=== PATIENT | female | born 1945 | race Asian ===

== ENCOUNTER 2016-10-31 12:54 | Emergency (ER) | payer MEDICARE, OTHER ==
[2016-10-31] MEDS ORDERED: NS 0.9% 1000 ML* 1,000 ML IV ONE (15:47)
[2016-10-31] MEDS ORDERED: Ondansetron INJ* 2 MG/ML VIAL IV ONE (15:47)
[2016-10-31] MEDS ORDERED: Meclizine TAB* 12.5 MG PO ONE (15:48)
[2016-10-31 16:15] LABS: Troponin I 0.02 ng/mL (<0.04)
[2016-10-31 16:16] LABS: Hematocrit 35 % (35-47); Hemoglobin 11.3 g/dl (12.0-16.0); Mean Corpuscular HGB Conc 32 g/dl (31-36); Mean Corpuscular Hemoglobin 24 pg (27-31); Mean Corpuscular Volume 75 fL (80-97); Mean Platelet Volume 9 um3 (7.4-10.4); Red Blood Count 4.71 10^6/ul (4.0-5.4); Red Cell Distribution Width 15 % (10.5-15); White Blood Count 11.9 10^3/ul (3.5-10.8)
[2016-10-31 16:18] LABS: Add Diff/Slide Review? Slide Review Added; Comments Flag Yes
[2016-10-31 16:21] LABS: Albumin 3.8 g/dL (3.2-5.2); BUN/Creatinine Ratio 16.7 (8-20); C Reactive Protein 3.12 mg/L (< 5.00); Calcium 9.4 mg/dL (8.6-10.3); EGFR African American 73.7 (>60); EGFR Non-African American 57.3 (>60); Globulin 3.7 g/dL (2-4); Total Bilirubin 0.5 mg/dL (0.2-1.0); Total Protein 7.5 g/dL (6.4-8.9)
[2016-10-31 16:28] LABS: TSH (Thyroid Stimulating Horm) 0.4 mcIU/mL (0.34-5.60)
--- NOTE | 2016-10-31 16:32 | RAD ---
Indication: Dizziness. CT of the brain was performed without IV contrast. Comparison is made with previous exam dated December 15, 2013. Ventricular structures are midline. No midline shift is noted. Central and cortical atrophy is noted. Periventricular lucency consistent with chronic ischemic White matter change is noted. Chronic infarct in the right frontal lobe is unchanged from previous exam of December 15, 2013. Bony calvaria including mastoid air cells and paranasal sinuses are unremarkable. 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 NO INTRACRANIAL MASS OR HEMORRHAGE IS NOTED.
[2016-10-31 16:35] LABS: Hypochromasia 1+; Microcytosis 1+
[2016-10-31 16:36] LABS: Magnesium 1.8 mg/dL (1.9-2.7); Potassium 4.8 mmol/L (3.5-5.0)
--- NOTE | 2016-10-31 16:51 | RAD ---
Indication: Dizziness. Single AP view of the chest demonstrates no mediastinal shift. Heart is of normal size and configuration. Lung justin are clear. Comparison is made with previous exam dated July 12, 2003 which is essentially unchanged. IMPRESSION: No active cardiopulmonary disease is noted.
[2016-10-31] MEDS ORDERED: Magnesium Oxide TAB* 400 MG PO ONE (17:02)
--- NOTE | 2016-10-31 17:49 | ED ---
Alex Muller Adam, scribed for Jake Watson MD on 10/31/16 at 1600 . Dizziness - HPI Summary HPI Summary: Pt is a 70 year old female presenting with dizziness that set on suddenly at 09: 00 this morning. Closing her eyes alleviates the dizziness. She also c/o nausea and vomiting. She denies CP, palpitations, and MONTESINOS. She denies any URI symptoms or Hx of URI. PMHx of DM, thyroid disease, and kidney stones. No tobacco/ alcohol use. FMHx of DM. - History Of Current Complaint Chief Complaint: EDDizziness Stated Complaint: DIZZY / NAUSEA Time Seen by Provider: 10/31/16 15:38 Hx Obtained From: Patient Onset/Duration: Suddenly Timing: Constant Severity Initially: Moderate Severity Currently: Moderate Character: Dizzy Aggravating Factor(s): Other - Opening eyes Alleviating Factor(s): Closing Eyes Associated Signs And Symptoms: Positive: Nausea, Vomiting. Negative: Chest Pain , Palpitations - Allergies/Home Medications Allergies/Adverse Reactions: Allergies Allergy/AdvReac Type Severity Reaction Status Date / Time No Known Allergies Allergy Verified 07/18/16 21:29 PMH/Surg Hx/FS Hx/Imm Hx Endocrine/Hematology History: Reports: Hx Diabetes, Hx Thyroid Disease - hypo - Surgical History Surgery Procedure, Year, and Place: Lithotripsy right kidney Infectious Disease History: No Infectious Disease History: Denies: Hx Clostridium Difficile, Hx Hepatitis, Hx Human Immunodeficiency Virus (HIV), Hx of Known/Suspected MRSA, Hx Shingles, Hx Tuberculosis, Hx Known/ Suspected VRE, Hx Known/Suspected VRSA, History Other Infectious Disease, Traveled Outside the [place] in Last 30 Days - Family History Known Family History: Positive: Diabetes Negative: Cardiac Disease, Hypertension - Social History Occupation: Retired Lives: With Family - Alcohol Use: None Hx Substance Use: No Substance Use Type: Reports: None Hx Tobacco Use: No Smoking Status (MU): Never Smoked Tobacco Have You Smoked in the Last Year: No Review of Systems Negative: Palpitations, Chest Pain Positive: Vomiting, Nausea Neurological: Other - Dizziness Negative: Headache All Other Systems Reviewed And Are Negative: Yes Physical Exam - Summary Physical Exam Summary: VITAL SIGNS: Reviewed. GENERAL: Patient is an overweight female who is lying comfortable in the stretcher. Patient is not in any acute respiratory distress. HEAD AND FACE: No signs of trauma. No ecchymosis, hematomas or skull depressions. No sinus tenderness. EYES: PERRLA, EOMI x 2, No injected conjunctiva, no nystagmus. No photophobia. EARS: Hearing grossly intact. Ear canals and tympanic membranes are within normal limits. MOUTH: Oropharynx within normal limits. NECK: Supple, trachea is midline, no adenopathy, no JVD, no carotid bruit, no c- spine tenderness, neck with full ROM. No meningeal signs, no Kernig's or brudzinskis signs. CHEST: Symmetric, no tenderness at palpation LUNGS: Clear to auscultation bilaterally. No wheezing or crackles. CVS: Regular rate and rhythm, S1 and S2 present, no murmurs or gallops appreciated. ABDOMEN: Soft, non-tender. No signs of distention. No rebound no guarding, and no masses palpated. Bowel sounds are normal. EXTREMITIES: FROM in all major joints, no edema, no cyanosis or clubbing. NEURO: Alert and oriented x 3. No acute neurological deficits. Speech is normal and follows commands. SKIN: Dry and warm Triage Information Reviewed: Yes Vital Signs On Initial Exam: Initial Vitals Temp Pulse Resp BP Pulse Ox 97.3 F 71 18 177/85 99 10/31/16 13:04 10/31/16 13:04 10/31/16 13:04 10/31/16 13:04 10/31/16 13:04 Vital Signs Reviewed: Yes Diagnostics - Vital Signs Vital Signs Temp Pulse Resp BP Pulse Ox 10/31/16 13:04 97.3 F 71 18 177/85 99 - Laboratory Lab Results: Lab Results 10/31/16 10/31/16 10/31/16 Range/Units 15:05 15:05 15:05 WBC 11.9 H (3.5-10.8) 10^3/ul RBC 4.71 (4.0-5.4) 10^6/ul Hgb 11.3 L (12.0-16.0) g/dl Hct 35 (35-47) % MCV 75 L (80-97) fL MCH 24 L (27-31) pg MCHC 32 (31-36) g/dl RDW 15 (10.5-15) % Plt Count 199 (150-450) 10^3/ul MPV 9 (7.4-10.4) um3 Neut % (Auto) 79.0 (38-83) % Lymph % (Auto) 14.3 L (25-47) % Roane % (Auto) 5.3 (1-9) % Eos % (Auto) 1.0 (0-6) % Baso % (Auto) 0.4 (0-2) % Absolute Neuts (auto) 9.4 H (1.5-7.7) 10^3/ul Absolute Lymphs (auto) 1.7 (1.0-4.8) 10^3/ul Absolute Monos (auto) 0.6 (0-0.8) 10^3/ul Absolute Eos (auto) 0.1 (0-0.6) 10^3/ul Absolute Basos (auto) 0.1 (0-0.2) 10^3/ul Absolute Nucleated RBC 0 10^3/ul Nucleated RBC % 0 Normal RBC Morphology Not Reportable Hypochromasia 1+ Microcytosis 1+ Sodium 134 (133-145) mmol/L Potassium 4.8 (3.5-5.0) mmol/L Chloride 102 (101-111) mmol/L Carbon Dioxide 28 (22-32) mmol/L Anion Gap 4 (2-11) mmol/L BUN 16 (6-24) mg/dL Creatinine 0.96 H (0.51-0.95) mg/dL Est GFR ( Amer) 73.7 (>60) Est GFR (Non-Af Amer) 57.3 (>60) BUN/Creatinine Ratio 16.7 (8-20) Glucose 219 H (70-100) mg/dL Calcium 9.4 (8.6-10.3) mg/dL Magnesium 1.8 L (1.9-2.7) mg/dL Total Bilirubin 0.50 (0.2-1.0) mg/dL AST 35 (13-39) U/L ALT 32 (7-52) U/L Alkaline Phosphatase 42 (34-104) U/L Troponin I 0.02 (<0.04) ng/mL C-Reactive Protein 3.12 (< 5.00) mg/L B-Natriuretic Peptide 63 ( - 100) pg/mL Total Protein 7.5 (6.4-8.9) g/dL Albumin 3.8 (3.2-5.2) g/dL Globulin 3.7 (2-4) g/dL Albumin/Globulin Ratio 1.0 (1-3) TSH 0.40 (0.34-5.60) mcIU/mL Result Diagrams: 10/31/16 15:05 10/31/16 15:05 Lab Statement: Any lab studies that have been ordered have been reviewed, and results considered in the medical decision making process. 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 NO INTRACRANIAL MASS OR HEMORRHAGE IS NOTED. - Additional Comments Diagnostic Additional Comments: Troponin I - 0.02 Dizzy Course/Dx - Course Assessment/Plan: Pt is a 70 year old female presenting with dizziness that set on suddenly at 09:00 this morning. Closing her eyes alleviates the dizziness. She also c/o nausea and vomiting. She denies CP, palpitations, and MONTESINOS. She denies any URI symptoms or Hx of URI. PMHx of DM, thyroid disease, and kidney stones. In the ED course she was given IV fluids. Zofran for nausea and Meclizine for Vertigo. Head CT impression : age appropriate atrophy w/ chronic ischemic changes. Old lacunar infarct. No intracranial mass or hemorrhage noted. CXR shows no acute pathology. Labs WNL except for slight increase in the WBCs, and hyperglycemia of 219 and magnesium of 1.8 for which she was given magnesium tablets. I discussed all the findings and test results with the patient. Patient was instructed to return to the emergency room immediately if any of the symptoms return or worsens. Patient understands and agrees. Plan of care was discussed with the patient and patient understands and agrees with the plan of care. All questions were answered at patient satisfaction. There were no further complaints or concerns. Patient is alert and oriented x 3. Patient vital signs are stable. Patient is to follow up with primary care physician in the next 2 to 3 days. Patient understands and agrees. - Diagnoses Differential Diagnosis/HQI/PQRI: Anxiety, Meniere's Disease, Medication Reaction , Transient Ischemic Attack, Vasovagal Reaction Provider Diagnoses: Vertigo Discharge - Discharge Plan Condition: Stable Disposition: HOME Prescriptions: Meclizine TAB* [Antivert 12.5 TAB*] 25 mg PO TID PRN #30 tab PRN Reason: Vertigo Ondansetron ODT TAB* [Zofran Odt TAB*] 4 mg PO Q6H PRN #10 tab.odt PRN Reason: Vomiting Patient Education Materials: Vertigo (ED) Referrals: Louis Raymundo MD [Primary Care Provider] - The documentation as recorded by the Alex katz Adam accurately reflects the service I personally performed and the decisions made by Walter bhakta Walter, MD.
[2016-10-31 18:07] VITALS: BP 132/72
== END 2016-10-31 18:05 | disposition home or self-care (01) ==
LOC: ED 12:54
DX: R42 Dizziness and giddiness (principal); R11.2 Nausea with vomiting, unspecified
CPT/HCPCS: 36415; 70450; 71010; 80053; 83735; 83880; 84443; 84484; 85025; 86140; 93005; 96374; 99284; A9270-GY; J2405

== ENCOUNTER 2017-12-05 20:59 | Emergency (ER) | payer MEDICARE, OTHER ==
[2017-12-06] MEDS: LORazepam INJ* 2 MG/ML 1 ML VIAL IV PUSH ONE (00:07)
[2017-12-06] MEDS: Labetalol IV* 5 MG/ML 20 ML VIAL IV PUSH ONE (00:07)
[2017-12-06] MEDS: Meclizine TAB* 12.5 MG PO ONE (00:08)
[2017-12-06 00:16] LABS: ABS Basophils 0 10^3/ul (0-0.2); ABS Eosinophils 0 10^3/ul (0-0.6); ABS Lymphocytes 0.9 10^3/ul (1.0-4.8); ABS Monocytes 0.5 10^3/ul (0-0.8); ABS Neutrophils 9.4 10^3/ul (1.5-7.7); ABS Nucleated RBC 0 10^3/ul; Eosinophil % 0.3 % (0-6); Hematocrit 36 % (35-47); Hemoglobin 11.8 g/dl (12.0-16.0); Mean Corpuscular HGB Conc 33 g/dl (31-36); Mean Corpuscular Hemoglobin 24 pg (27-31); Mean Corpuscular Volume 75 fL (80-97); Mean Platelet Volume 9 um3 (7.4-10.4); Nucleated Red Blood Cells % 0; Platelet Count 185 10^3/ul (150-450); Red Blood Count 4.83 10^6/ul (4.0-5.4); Red Cell Distribution Width 14 % (10.5-15); White Blood Count 10.8 10^3/ul (3.5-10.8)
[2017-12-06 00:24] LABS: INR 0.85 (0.77-1.02)
[2017-12-06 00:31] LABS: EGFR Non-African American 66.6 (>60)
[2017-12-06] MEDS: Iodixanol* (CONTRAST) 320 MG/ML 100 ML SDV IV ONE (03:14)
[2017-12-06 04:27] VITALS: BP 143/56
--- NOTE | 2017-12-06 04:46 | ED ---
Alvin Muller Stephanie, scribed for Zeyad Spear MD on 12/05/17 at 2356 . Dizziness - HPI Summary HPI Summary: The pt is a 71 y/o F presenting to the ED with c/o dizziness that began at 19: 00 today. The dizziness is described as room-spinning dizziness. Symptoms include nausea and vomiting. The pt reports taking 2 Meclizine tablets at 06:00 today. The pt reports feeling better now than she did at the time of onset. - History Of Current Complaint Chief Complaint: EDDizziness Stated Complaint: ABD PAIN/DIZZY Time Seen by Provider: 12/05/17 23:23 Hx Obtained From: Patient, Family/[employer] Access Developer - daughter/translater Onset/Duration: Still Present Timing: Constant Character: Room Spinning, Dizzy Aggravating Factor(s): Other - opening eyes Alleviating Factor(s): Closing Eyes Associated Signs And Symptoms: Positive: Nausea, Vomiting - Allergies/Home Medications Allergies/Adverse Reactions: Allergies Allergy/AdvReac Type Severity Reaction Status Date / Time No Known Allergies Allergy Verified 12/05/17 21:19 PMH/Surg Hx/FS Hx/Imm Hx Endocrine/Hematology History: Reports: Hx Diabetes, Hx Thyroid Disease - hypo - Surgical History Surgery Procedure, Year, and Place: Lithotripsy right kidney Infectious Disease History: No Infectious Disease History: Denies: Hx Clostridium Difficile, Hx Hepatitis, Hx Human Immunodeficiency Virus (HIV), Hx of Known/Suspected MRSA, Hx Shingles, Hx Tuberculosis, Hx Known/ Suspected VRE, Hx Known/Suspected VRSA, History Other Infectious Disease, Traveled Outside the [place] in Last 30 Days - Family History Known Family History: Positive: Diabetes Negative: Cardiac Disease, Hypertension - Social History Occupation: Retired Lives: With Family Alcohol Use: None Hx Substance Use: No Substance Use Type: Reports: None Hx Tobacco Use: No Smoking Status (MU): Never Smoked Tobacco Have You Smoked in the Last Year: No Review of Systems Positive: Vomiting, Nausea Neurological: Other - dizziness All Other Systems Reviewed And Are Negative: Yes Physical Exam - Summary Physical Exam Summary: VITAL SIGNS: Reviewed. GENERAL: Patient is a well-developed and nourished FEMALE who is lying comfortable in the stretcher. Patient is not in any acute respiratory distress. HEAD AND FACE: No signs of trauma. No ecchymosis, hematomas or skull depressions. No sinus tenderness. EYES: PERRLA, EOMI x 2, No injected conjunctiva, no nystagmus. EARS: Hearing grossly intact. Ear canals and tympanic membranes are within normal limits. MOUTH: Oropharynx within normal limits. NECK: Supple, trachea is midline, no adenopathy, no JVD, no carotid bruit, no c- spine tenderness, neck with full ROM. CHEST: Symmetric, no tenderness at palpation LUNGS: Clear to auscultation bilaterally. No wheezing or crackles. CVS: Regular rate and rhythm, S1 and S2 present, no murmurs or gallops appreciated. ABDOMEN: Soft, non-tender. No signs of distention. No rebound no guarding, and no masses palpated. Bowel sounds are normal. EXTREMITIES: FROM in all major joints, no edema, no cyanosis or clubbing. NEURO: Alert and oriented x 3. No acute neurological deficits. Speech is normal and follows commands. The pt was not able to ambulate because she became very nauseous and dizzy. SKIN: Dry and warm Triage Information Reviewed: Yes Vital Signs On Initial Exam: Initial Vitals Temp Pulse Resp BP Pulse Ox 98.3 F 73 20 186/72 100 12/05/17 21:14 12/05/17 21:14 12/05/17 21:14 12/05/17 21:14 12/05/17 21:14 Vital Signs Reviewed: Yes Diagnostics - Vital Signs Vital Signs Temp Pulse Resp BP Pulse Ox 12/05/17 23:26 75 98 12/05/17 23:16 98.2 F 70 14 159/61 100 12/05/17 21:14 98.3 F 73 20 186/72 100 - Laboratory Result Diagrams: 12/06/17 00:05 12/06/17 00:05 Lab Statement: Any lab studies that have been ordered have been reviewed, and results considered in the medical decision making process. - CT head CT Interpretation: No Acute Changes CT Interpretation Completed By: Radiologist - No acute brain parenchymal abnormality and no change since 10/31/16. No hemorrhage, mass or acute territorial infarct. Age-related involuntary changes and chronic small vessel ischemic changes. Small chronic infarct right frontal lobe white matter. Clear visualized paranasal sinuses. Visualized mastoid air cells clear. CTA head/neck CT Interpretation: No Acute Changes CT Interpretation Completed By: Radiologist - Enlarged multinodular thyroid gland with largest nodule 1.7 on left. Small left thyroid calcification. Patent bilateral carotid and vertebral arteries with no evidence of dissection, extravasation, aneurism, or substantial stenosis. - EKG 21:22 Cardiac Rate: NL EKG Rhythm: Sinus Rhythm - 72 BPM Dizzy Course/Dx - Course Course Of Treatment: The pt is a 71 y/o F presenting to the ED with c/o dizziness that began at 19:00 today. The pt walked appropriately during the gait test. At this time (04:30) she feels better and will be discharged with Meclizine to use as needed for dizziness. - Diagnoses Provider Diagnoses: Vertigo Discharge - Discharge Plan Condition: Stable Disposition: HOME Prescriptions: Meclizine TAB* [Antivert 12.5 TAB*] 25 mg PO TID PRN #30 tab PRN Reason: Dizziness Patient Education Materials: Vertigo (ED) Referrals: Louis Raymundo MD [Primary Care Provider] - Additional Instructions: Take Meclizine as needed for dizziness. RETURN TO EMERGENCY DEPARTMENT FOR ANY NEW OR WORSENING SYMPTOMS The documentation as recorded by the Alvin katz Stephanie accurately reflects the service I personally performed and the decisions made by , Zeyad Spear MD.
--- NOTE | 2017-12-06 07:48 | RAD ---
INDICATION: Dizziness. COMPARISON: Comparison is made with a prior CT of the brain from October 31, 2016. TECHNIQUE: Contiguous axial sections of the brain were obtained from the skull base to the vertex without contrast. FINDINGS: The ventricles, cisterns and sulci are enlarged consistent with age-related atrophy. There are small areas of decreased density in the subcortical and periventricular white matter suggestive of mild chronic small vessel ischemic changes. There is also a focal area of encephalomalacia present in the right frontal lobe most consistent with an old infarct which is unchanged. No other focal abnormalities or mass effect are seen. There is no evidence for hemorrhage. No significant focal osseous abnormality is seen. The visualized portion of the paranasal sinuses and mastoid air cells appear clear. IMPRESSION: 1. NO EVIDENCE FOR GROSS ACUTE INFARCT, MASS EFFECT OR HEMORRHAGE. 2. SMALL OLD INFARCT IN THE RIGHT FRONTAL LOBE, UNCHANGED.
--- NOTE | 2017-12-06 08:03 | RAD ---
HISTORY: Dizziness COMPARISONS: Head CT dated December 06, 2017 TECHNIQUE: Multiple contiguous axial CT scans were obtained of the head and neck after the administration of nonionic intravenous contrast timed to the systemic arterial phase of contrast enhancement. Coronal and sagittal multiplanar reformations are submitted for review. Multiple 3-D maximum intensity projection reconstructions are also submitted for review. FINDINGS: CTA NECK: AORTIC ARCH: There is calcific atherosclerotic disease of the aortic arch, without ostial or proximal stenosis of the cephalic great vessels. There is a normal three-vessel branching pattern. RIGHT VERTEBRAL ARTERY: The right vertebral artery is patent along its course, without stenosis. LEFT VERTEBRAL ARTERY: The left vertebral artery is patent along its course, without stenosis. DOMINANCE: The vertebral arteries are codominant. RIGHT COMMON CAROTID ARTERY: The right common carotid artery is patent. The right carotid bifurcation occurs at C4 RIGHT INTERNAL CAROTID ARTERY: There is no right internal carotid artery stenosis by NASCET criteria. RIGHT EXTERNAL CAROTID ARTERY: The right external carotid artery is unremarkable. LEFT COMMON CAROTID ARTERY: The left common carotid artery is patent. The left carotid bifurcation occurs at C4-C5 LEFT INTERNAL CAROTID ARTERY: There is no left internal carotid artery stenosis by NASCET criteria. LEFT EXTERNAL CAROTID ARTERY: The left external carotid artery is unremarkable. VENOUS CIRCULATION: The venous system is unremarkable. SALIVARY GLANDS: The parotid glands are homogeneously enlarged bilaterally. There is no sialolithiasis or salivary ductal dilatation.. NASAL CAVITY/NASOPHARYNX: The nasal cavity and nasopharynx are normal. ORAL CAVITY/OROPHARYNX: The oral cavity is obscured by streak artifact from dental amalgam. The visualized oral cavity and oropharynx are unremarkable. LARYNGEAL APPARATUS/HYPOPHARYNX: The laryngeal apparatus and hypopharynx are normal. UPPER AIRWAY/UPPER ESOPHAGUS: The visualized upper airway and esophagus are normal. LUNG APICES: The lung apices are clear. THYROID GLAND: The thyroid gland is diffusely enlarged with multiple nodules bilaterally. LYMPH NODES: There is no lymphadenopathy by size criteria. BONES AND SOFT TISSUES: No bone or soft tissue abnormalities are noted. CTA HEAD: INTRACRANIAL CIRCULATION: There is no aneurysm, vascular malformation, occlusion, or stenosis of the visualized intracranial circulation. The anterior communicating artery complex is clear. Bilateral posterior communicating arteries are identified. VENOUS CIRCULATION: The venous system is unremarkable. PERFUSION: There is no obvious parenchymal perfusion deficit. HEMORRHAGE/INFARCT: There is no hemorrhage or acute infarct. MASSES/SHIFT: There is no mass or shift. EXTRA-AXIAL SPACES: There are no extra-axial fluid collections. SULCI AND VENTRICLES: The sulci and ventricles are normal in size and position for the patient's stated age. CEREBRUM: There is hypoattenuation of the periventricular and subcortical white matter. This is more focal in the right periventricular white matter. BRAINSTEM: There are no focal parenchymal abnormalities. CEREBELLUM: There are no focal parenchymal abnormalities. PARANASAL SINUSES: The paranasal sinuses are clear. ORBITS: The orbits are unremarkable. BONES AND SOFT TISSUE: No bone or soft tissue abnormalities are noted. OTHER: There is no abnormal enhancement. IMPRESSION: 1. NO INTERNAL CAROTID ARTERY STENOSIS BY NASCET CRITERIA. 2. NO ANEURYSM, VASCULAR MALFORMATION, OCCLUSION, OR STENOSIS OF THE VISUALIZED INTRACRANIAL CIRCULATION. 3. THYROMEGALY WITH MULTIPLE THYROID NODULES. 4. ENLARGED PAROTID GLANDS BILATERALLY SUGGESTIVE OF SIALOSIS. THERE IS NO SALIVARY DUCTAL DILATATION CPT II Codes: 3100F
== END 2017-12-06 04:38 | disposition home or self-care (01) ==
LOC: ED 20:59
DX: R42 Dizziness and giddiness (principal); E01.0 Iodine-deficiency related diffuse (endemic) goiter; K11.9 Disease of salivary gland, unspecified
CPT/HCPCS: 36415; 70450; 70496; 70498; 80053; 85025; 85610; 85730; 93005; 96374; 96375; 99284; A9270-GY; J2060; Q9967

== ENCOUNTER 2018-07-09 06:41 | Emergency (ER) | payer MEDICARE, OTHER ==
[2018-07-09] MEDS ORDERED: NS 0.9% 1000 ML* 1,000 ML IV ONE (07:54)
--- NOTE | 2018-07-09 07:55 | ED ---
Lower Extremity - HPI Summary HPI Summary: Pt. is a 72 y.o female who presents to the ER for bilateral leg cramping that started last night. Pt. states she has had similar symptoms in the past. Pt. states cramping is improving since being in the ER. She denies leg swelling, chest pain, fever, abd. pain, V/D, urinary symptoms, back pain. She denies any recent falls or injuries. Symptoms are mild-moderate in severity. No current modifying factors. - History of Current Complaint Chief Complaint: EDExtremityLower Stated Complaint: BILATERAL LEG CRAMPING Time Seen by Provider: 07/09/18 07:49 Hx Obtained From: Patient, Family/Magazine Supervisor Pain Intensity: 5 - Allergies/Home Medications Allergies/Adverse Reactions: Allergies Allergy/AdvReac Type Severity Reaction Status Date / Time No Known Allergies Allergy Verified 07/09/18 06:46 PMH/Surg Hx/FS Hx/Imm Hx Previously Healthy: Yes Endocrine/Hematology History: Reports: Hx Diabetes, Hx Thyroid Disease - hypo - Surgical History Surgery Procedure, Year, and Place: Lithotripsy right kidney Infectious Disease History: No Infectious Disease History: Denies: Hx Clostridium Difficile, Hx Hepatitis, Hx Human Immunodeficiency Virus (HIV), Hx of Known/Suspected MRSA, Hx Shingles, Hx Tuberculosis, Hx Known/ Suspected VRE, Hx Known/Suspected VRSA, History Other Infectious Disease, Traveled Outside the [place] in Last 30 Days - Family History Known Family History: Positive: Diabetes Negative: Cardiac Disease, Hypertension - Social History Occupation: Retired Lives: With Family Alcohol Use: None Hx Substance Use: No Substance Use Type: Reports: None Hx Tobacco Use: No Smoking Status (MU): Never Smoked Tobacco Have You Smoked in the Last Year: No Review of Systems Constitutional: Negative Negative: Fever, Chills Cardiovascular: Negative Respiratory: Negative Gastrointestinal: Negative Negative: Abdominal Pain, Vomiting, Diarrhea Positive: Other - Biltaeral leg cramping Skin: Negative Neurological: Negative All Other Systems Reviewed And Are Negative: Yes Physical Exam Triage Information Reviewed: Yes Vital Signs On Initial Exam: Initial Vitals Temp Pulse Resp BP Pulse Ox 98 F 102 18 146/87 99 07/09/18 06:42 07/09/18 06:42 07/09/18 06:42 07/09/18 06:42 07/09/18 06:42 Vital Signs Reviewed: Yes Appearance: Positive: Well-Appearing - Pt. sitting up in bed in NAD. Pleasant. Daughter present. Skin: Positive: Warm, Dry Head/Face: Positive: Normal Head/Face Inspection Eyes: Positive: Normal, EOMI Neck: Positive: Supple Respiratory/Lung Sounds: Positive: Clear to Auscultation, Breath Sounds Present Cardiovascular: Positive: Normal, RRR Musculoskeletal: Positive: Other - 5/5 strength in bilateral LEs with flexion and dorsiflexion. No edema. No calf pain. No wounds or signs of infection. Neurological: Positive: Normal, CN Intact II-III Psychiatric: Positive: Affect/Mood Appropriate Diagnostics - Vital Signs Vital Signs Temp Pulse Resp BP Pulse Ox 07/09/18 07:48 80 160/75 98 07/09/18 07:20 99 96 07/09/18 07:18 88 159/81 94 07/09/18 06:42 98 F 102 18 146/87 99 - Laboratory Result Diagrams: 07/09/18 08:12 07/09/18 08:12 Lab Statement: Any lab studies that have been ordered have been reviewed, and results considered in the medical decision making process. Lower Extremity Course/Dx - Course Course Of Treatment: Patient presenting with bilateral leg cramping that is improving. She is afebrile with stable vital signs. No evidence of DVT or infection on exam. We'll check basic labs and electrolytes. The patient liter of IV fluids. CBC shows chronic mildly worsening anemia. CMP shows elevated glucose of 232 and low magnesium of 1.6. Suspect patient's muscle cramps secondary to low magnesium. We'll give her a gram IV mag. Results were discussed with patient. Advised to take an OTC daily vitamin. To call PCP today to schedule a f.u apt. and repeat labs. To increase fluids. Pt. to return to ER if symptom change or worsen. Pt. understands and agrees with plan. - Diagnoses Differential Diagnosis/HQI/PQRI: Positive: Cellulitis, Contusion, DVT, Sprain, Strain Provider Diagnoses: Muscle cramps, Hypomagnesemia Discharge - Sign-Out/Discharge Documenting (check all that apply): Patient Departure - Discharge Plan Condition: Good Disposition: HOME Patient Education Materials: Hypomagnesemia (ED), Muscle Cramp (ED) Referrals: Louis Raymundo MD [Primary Care Provider] - Additional Instructions: Schedule a follow up appointment with your PCP for recheck and repeat magnesium level Recommend taking an over the counter daily vitamin Increase fluids Return to ER if symptoms change or worsen - Billing Disposition and Condition Condition: GOOD Disposition: Home
[2018-07-09 08:20] LABS: Hematocrit 32 % (35-47); Hemoglobin 10.7 g/dl (12.0-16.0); Mean Corpuscular HGB Conc 33 g/dl (31-36); Mean Corpuscular Hemoglobin 25 pg (27-31); Mean Corpuscular Volume 74 fL (80-97); Mean Platelet Volume 8.7 um3 (7.4-10.4); Platelet Count 178 10^3/ul (150-450); Red Blood Count 4.38 10^6/ul (4.00-5.40); Red Cell Distribution Width 14 % (10.5-15); White Blood Count 9.2 10^3/ul (3.5-10.8)
[2018-07-09 08:35] LABS: EGFR Non-African American 59.1 (>60)
[2018-07-09] MEDS ORDERED: Magnesium Sulfate 1 GM IV* 1 GM/100 ML BAG IV ONE (08:41)
[2018-07-09 08:47] LABS: ABS Basophils 0 10^3/ul (0-0.2); ABS Eosinophils 0 10^3/ul (0-0.6); ABS Lymphocytes 0.9 10^3/ul (1.0-4.8); ABS Monocytes 0.2 10^3/ul (0-0.8); ABS Neutrophils 8.1 10^3/ul (1.5-7.7); ABS Nucleated RBC 0 10^3/ul; Eosinophil % 0.1 % (0-6); Lymphocyte % 9.8 % (25-47); Nucleated Red Blood Cells % 0
[2018-07-09 10:21] VITALS: BP 140/81
== END 2018-07-09 10:18 | disposition home or self-care (01) ==
LOC: ED 06:41
DX: R25.2 Cramp and spasm (principal); E83.42 Hypomagnesemia
CPT/HCPCS: 36415; 80053; 83735; 85025; 96365; 96366; 99282; J3475

== ENCOUNTER 2018-08-16 17:28 | Emergency (ER) | payer MEDICARE, OTHER ==
--- NOTE | 2018-08-16 21:55 | ED ---
Shortness of Breath - HPI Summary HPI Summary: This patient is a 72 year old F presenting to [facility] accompanied by her daughter with a chief complaint of difficulty breathing due to the heat in her home. Patient states she recently had a new furnance put into her home and the heat was high, causing SOB. Patient states her SOB is currently resolved and she has no other symptoms at this time. Patient denies cough, fever, chest pain, and calf pain or swelling. - History of Current Complaint Chief Complaint: EDShortnessOfBreath Time Seen by Provider: 08/16/18 21:47 Hx Obtained From: Patient Onset/Duration: Sudden Onset, Resolved Aggrevating Factors: Other - heat Alleviating Factors: Other - removed self from heat Associated Signs & Symptoms: Negative - Allergy/Home Medications Allergies/Adverse Reactions: Allergies Allergy/AdvReac Type Severity Reaction Status Date / Time No Known Allergies Allergy Verified 07/09/18 06:46 PMH/Surg Hx/FS Hx/Imm Hx Endocrine/Hematology History: Reports: Hx Diabetes, Hx Thyroid Disease - hypo EENT History: Denies: Hx Deafness - Surgical History Surgery Procedure, Year, and Place: Lithotripsy right kidney Infectious Disease History: No Infectious Disease History: Denies: Hx Clostridium Difficile, Hx Hepatitis, Hx Human Immunodeficiency Virus (HIV), Hx of Known/Suspected MRSA, Hx Shingles, Hx Tuberculosis, Hx Known/ Suspected VRE, Hx Known/Suspected VRSA, History Other Infectious Disease, Traveled Outside the in Last 30 Days - Family History Known Family History: Positive: Diabetes Negative: Cardiac Disease, Hypertension - Social History Alcohol Use: None Hx Substance Use: No Substance Use Type: Reports: None Hx Tobacco Use: No Smoking Status (MU): Never Smoked Tobacco Have You Smoked in the Last Year: No Review of Systems Negative: Fever Negative: Chest Pain Positive: Shortness Of Breath. Negative: Cough Negative: Myalgia, Edema All Other Systems Reviewed And Are Negative: Yes Physical Exam - Summary Physical Exam Summary: Appearance: Well-appearing, Well-nourished, lying in bed comfortably Skin: Warm, dry, no obvious rash Eyes: sclera anicteric, no conjunctival pallor ENT: mucous membranes moist, pharynx appears normal Neck: Supple, nontender Respiratory: Clear to auscultation, no signs of respiratory distress Cardiovascular: Normal S1, S2. No murmurs. Normal distal pulses in tibial and radial bilaterally. Abdomen: Soft, nontender, normal active bowel sounds present Musculoskeletal: Normal, Strength/ROM Intact, Neurological: A&Ox3, awake and alert, mentation is normal, speech is fluent and appropriate Psychiatric: affect is normal, does not appear anxious or depressed Triage Information Reviewed: Yes Vital Signs On Initial Exam: Initial Vitals Temp Pulse Resp BP Pulse Ox 99.0 F 90 14 161/69 98 08/16/18 17:48 08/16/18 17:48 08/16/18 17:48 08/16/18 17:48 08/16/18 17:48 Vital Signs Reviewed: Yes Diagnostics - Vital Signs Vital Signs Temp Pulse Resp BP Pulse Ox 08/16/18 20:22 97.8 F 85 18 166/65 100 08/16/18 17:48 99.0 F 90 14 161/69 98 - Laboratory Lab Statement: Any lab studies that have been ordered have been reviewed, and results considered in the medical decision making process. Course/Dx - Course Course Of Treatment: 72 year old F presenting with a chief complaint of difficulty breathing due to the heat in her home. Patient states she recently had a new furnance put into her home and the heat was high, causing SOB. Patient states her SOB is currently resolved and she has no other symptoms at this time. Patient believes her symptoms were caused by her new furnance and she intends to turn down the heat. She has no complaints at this time. Patient is discharged and was instructed to return is symptoms returned. - Diagnoses Provider Diagnoses: Dyspnea Discharge - Sign-Out/Discharge Documenting (check all that apply): Patient Departure - discharged - Discharge Plan Condition: Good Disposition: HOME Patient Education Materials: Dyspnea (ED) Referrals: Louis Raymundo MD [Primary Care Provider] - 1 Day (if not feeling well) - Billing Disposition and Condition Condition: GOOD Disposition: Home - Attestation Statements Document Initiated by Scribe: Yes Documenting Scribe: Skyla Foley Provider For Whom Marni is Documenting (Include Credential): Daniel Silver MD Scribe Attestation: Skyla Muller, scribed for Daniel Silver MD on 08/17/18 at 0132. Scribe Documentation Reviewed: Yes Provider Attestation: The documentation as recorded by the Skyla katz accurately reflects the service I personally performed and the decisions made by me, Daniel Silver MD
[2018-08-16 22:21] VITALS: BP 154/81
== END 2018-08-16 22:30 | disposition home or self-care (01) ==
LOC: ED 17:28
DX: R06.02 Shortness of breath (principal)
CPT/HCPCS: 99282

== ENCOUNTER 2018-11-27 09:47 | Emergency (ER) | payer MEDICARE, OTHER ==
--- NOTE | 2018-11-27 10:18 | UC ---
Dizzy HPI HPI Summary: reports dizziness this AM which has since resolved while she's in her. she reports having vertigo in the past w/ improvement w/ meclizine so she took one this AM. denies cp, sob, confusion, diaphoresis. she is hyperglycemia today. - History Of Current Complaint Chief Complaint: UCDizziness Stated Complaint: DIZZINESS Time Seen by Provider: 11/27/18 10:10 Hx Obtained From: Patient Onset/Duration: Sudden Onset Pain Intensity: 4 Pain Scale Used: 0-10 Numeric Aggravating Factor(s): Nothing Alleviating Factor(s): Nothing - Allergies/Home Medications Allergies/Adverse Reactions: Allergies Allergy/AdvReac Type Severity Reaction Status Date / Time No Known Allergies Allergy Verified 11/27/18 09:58 PMH/Surg Hx/FS Hx/Imm Hx - Additional Past Medical History Additional PMH: vertigo Endocrine History: Diabetes - Surgical History Surgical History: Yes Surgery Procedure, Year, and Place: Lithotripsy right kidney. bilateral wrist surgery - Family History Known Family History: Positive: Diabetes Negative: Cardiac Disease, Hypertension - Social History Alcohol Use: None Substance Use Type: None Smoking Status (MU): Never Smoked Tobacco Have You Smoked in the Last Year: No Review of Systems All Other Systems Reviewed And Are Negative: Yes Constitutional: Negative: Fever, Chills, Fatigue Skin: Negative: Rash Respiratory: Negative: Shortness Of Breath Cardiovascular: Negative: Chest Pain Gastrointestinal: Negative: Abdominal Pain Neurological: Positive: Other - dizziness.. Negative: Headache, Weakness Psychological: Negative: Anxious Physical Exam Triage Information Reviewed: Yes Appearance: Well-Appearing Vital Signs: Initial Vital Signs Temp 96.6 F 11/27/18 09:49 Pulse 66 11/27/18 09:49 Resp 18 11/27/18 09:49 BP 154/65 11/27/18 09:49 Pulse Ox 99 11/27/18 09:49 Vital Signs Reviewed: Yes Respiratory Exam: Normal Cardiovascular Exam: Normal Abdomen Description: Positive: Nontender, Soft Neurological: Positive: Alert, Other: - speaking normally to me and understands instructions. son in law here w/ her.. Negative: Lethargic, Unresponsive Psychological: Positive: Normal Response To Family Skin: Negative: Rashes Dizzy Course/Dx - Course Course Of Treatment: Dizzines this AM in an hyperglycemic 72yr F w/ improving symptoms but EKG showed nonspecific ST changes and this is new compared to old EKG. We are sending to ED via ambulance. - Differential Dx/Diagnosis Differential Diagnosis/HQI/PQRI: Labyrinthitis, Myocardial Infarction Provider Diagnosis: Hyperglycemia, Dizziness Discharge - Sign-Out/Discharge Documenting (check all that apply): Patient Departure All imaging exams completed and their final reports reviewed: No Studies - Discharge Plan Condition: Stable Disposition: TRANS HIGHER LVL OF CARE FAC Patient Education Materials: Dizziness (ED) Referrals: Louis Raymundo MD [Primary Care Provider] - - Billing Disposition and Condition Condition: STABLE Disposition: Trans Higher Lvl of Care Fac
[2018-11-27 10:36] VITALS: BP 161/63
== END 2018-11-27 10:35 | disposition short-term general hospital (02) ==
LOC: UCEAST 09:47
DX: R42 Dizziness and giddiness (principal); E11.65 Type 2 diabetes mellitus with hyperglycemia
CPT/HCPCS: 93005; 99213; G0463

== ENCOUNTER 2018-11-27 10:54 | Emergency (ER) | payer MEDICARE, OTHER ==
[2018-11-27] MEDS ORDERED: Meclizine TAB* 12.5 MG PO ONE (11:08)
[2018-11-27] MEDS ORDERED: NS 0.9% 1000 ML** 1,000 ML IV ONE ×2 (11:08→12:05)
--- NOTE | 2018-11-27 11:16 | ED ---
Dizziness - HPI Summary HPI Summary: The patient is a 72 year old female sent from [facility] to the emergency room with a CC of dizziness that began this morning. [facility]. [facility] after she became dizzy at 0700, shortly after she had eaten her breakfast of banana bread. She reports the dizziness is much better now that it was this morning. She describes it as the room spinning. She is denying any CP, M[place], blurred vision , and nausea. BGL 284 by EMS - History Of Current Complaint Chief Complaint: EDDizziness Stated Complaint: DIZZINESS/POSS ELEVATED BP Time Seen by Provider: 11/27/18 10:58 Hx Obtained From: Patient Onset/Duration: Still Present Timing: Constant Severity Initially: Moderate Severity Currently: Mild Character: Room Spinning Associated Signs And Symptoms: Negative: Chest Pain, SOB - Allergies/Home Medications Allergies/Adverse Reactions: Allergies Allergy/AdvReac Type Severity Reaction Status Date / Time No Known Allergies Allergy Verified 11/27/18 11:35 Home Medications: Home Medications Levothyroxine TAB* [Synthroid 125 MCG TAB*] 125 mcg PO DAILY 11/27/18 [History Confirmed 11/27/18] Naproxen Sodium [Naproxen 550 mg] 550 mg PO BID PRN 11/27/18 [History Confirmed 11/27/18] Potassium Citrate (NF) [Urocit-K 10 (NF)] 10 meq PO DAILY 11/27/18 [History Confirmed 11/27/18] metFORMIN* [Glucophage 500 MG TAB *] 1,000 mg PO DAILY 11/27/18 [History Confirmed 11/27/18] tiZANidine TAB* [Zanaflex TAB*] 4 mg PO BEDTIME PRN 11/27/18 [History Confirmed 11/27/18] PMH/Surg Hx/FS Hx/Imm Hx Endocrine/Hematology History: Reports: Hx Diabetes, Hx Thyroid Disease - hypo History: Denies: Hx Benign Prostatic Hyperplasia, Hx Kidney Stones Sensory History: Denies: Hx Deafness - Surgical History Surgery Procedure, Year, and Place: Lithotripsy right kidney. bilateral wrist surgery Infectious Disease History: No Infectious Disease History: Denies: Hx Clostridium Difficile, Hx Hepatitis, Hx Human Immunodeficiency Virus (HIV), Hx of Known/Suspected MRSA, Hx Shingles, Hx Tuberculosis, Hx Known/ Suspected VRE, Hx Known/Suspected VRSA, History Other Infectious Disease, Traveled Outside the [place] in Last 30 Days - Family History Known Family History: Positive: Diabetes Negative: Cardiac Disease, Hypertension - Social History Alcohol Use: None Hx Substance Use: No Substance Use Type: Reports: None Hx Tobacco Use: No Smoking Status (MU): Never Smoked Tobacco Have You Smoked in the Last Year: No Review of Systems Negative: Blurred Vision Negative: Chest Pain Negative: Shortness Of Breath Neurological: Other - dizziness Negative: Headache All Other Systems Reviewed And Are Negative: Yes Physical Exam - Summary Physical Exam Summary: VITAL SIGNS: Reviewed. GENERAL: Patient is a well-developed and nourished female who is lying comfortable in the stretcher. Patient is not in any acute respiratory distress. HEAD AND FACE: No signs of trauma. No ecchymosis, hematomas or skull depressions. No sinus tenderness. EYES: PERRLA, EOMI x 2, No injected conjunctiva, no nystagmus. EARS: Hearing grossly intact. Ear canals and tympanic membranes are within normal limits. MOUTH: Oropharynx within normal limits. NECK: Supple, trachea is midline, no adenopathy, no JVD, no carotid bruit, no c- spine tenderness, neck with full ROM. CHEST: Symmetric, no tenderness at palpation LUNGS: Clear to auscultation bilaterally. No wheezing or crackles. CVS: Regular rate and rhythm, S1 and S2 present, no murmurs or gallops appreciated. ABDOMEN: Soft, non-tender. No signs of distention. No rebound no guarding, and no masses palpated. Bowel sounds are normal. EXTREMITIES: FROM in all major joints, no edema, no cyanosis or clubbing. NEURO: Alert and oriented x 3. No acute neurological deficits. Speech is normal and follows commands. SKIN: Dry and warm Triage Information Reviewed: Yes Vital Signs On Initial Exam: Initial Vitals Temp Pulse Resp BP Pulse Ox 97.5 F 70 16 176/76 98 11/27/18 10:59 11/27/18 10:59 11/27/18 10:59 11/27/18 10:59 11/27/18 10:59 Vital Signs Reviewed: Yes - [place] Coma Scale Best Eye Response: 4 - Spontaneous Best Motor Response: 6 - Obeys Commands Best Verbal Response: 5 - Oriented Coma Scale Total: 15 Diagnostics - Vital Signs Vital Signs Temp Pulse Resp BP Pulse Ox 11/27/18 10:59 97.5 F 70 16 176/76 98 - Laboratory Result Diagrams: 11/27/18 11:31 11/27/18 11:31 Lab Statement: Any lab studies that have been ordered have been reviewed, and results considered in the medical decision making process. - Radiology CXR Radiology Interpretation Completed By: Radiologist Summary of Radiographic Findings: no active cardiopulmonary disease. ED physician has reviewed this report. - CT CT Brain CT Interpretation Completed By: Radiologist Summary of CT Findings: No intracranial mass or hemorrhage is noted. ED physician has reviewed this report. - EKG 1104 Cardiac Rate: NL EKG Rhythm: Sinus Rhythm - at 75 BPM Summary of EKG Findings: Q wave in [address] elevations, normal axis. Dizzy Course/Dx - Course Assessment/Plan: Blood work without any significant abnormality except for WBCs of 11.4, hemoglobin 11.1, hematocrit 35 and platelets 193. Anion gap is 12, creatinine is 1.12, glucose is 249, lactic acid is 4.3, magnesium is 1.8. BNP is 119. In the ED course the patient was given IV fluids and meclizine for the dizziness. The patient has hyperglycemia therefore the patient was given insulin. I believe the lactic acid is elevated secondary to hyperglycemia. However after hydration and will recheck the lactic acid. The patient denies any fevers, denies any chills, denies any headache, chest patients of breath, abdominal pain nausea vomiting or diarrhea. Therefore there are no signs of infection. Head CT impression: No acute intra-abdominal pathology. Chest x- ray impression: No evidence for acute disease. After hydration the repeat lactic acid is 2.80. Again I believe that the increase lactic acidosis secondary to her hyperglycemia uncontrolled diabetes. Chest x-ray is negative for pneumonia and urinalysis negative for UTI. Also the CRP is only 3.23. At this point the patient is feeling better she doesnt have any dizziness therefore the patient will be discharged home with follow-up with primary care physician. She was recommended to return to the emergency department if she develops any fevers, chills, any cough, any diarrhea or any other symptom. She understands and agrees. - Diagnoses Differential Diagnosis/HQI/PQRI: Benign Paroxysmal Positional Vertigo, Coronary Artery Disease, Meniere's Disease, Transient Ischemic Attack Provider Diagnoses: Vertigo Discharge - Sign-Out/Discharge Documenting (check all that apply): Patient Departure Patient Received Moderate/Deep Sedation with Procedure: No - Discharge Plan Condition: Stable Disposition: HOME Prescriptions: Meclizine TAB* [Antivert 12.5 TAB*] 25 mg PO TID PRN #30 tab PRN Reason: Vertigo Patient Education Materials: Vertigo (ED) Referrals: Louis Raymundo MD [Primary Care Provider] - Additional Instructions: Follow up with your primary care physician in 1-3 days. RETURN TO THE EMERGENCY DEPARTMENT FOR CHANGING OR WORSENING SYMPTOMS. - Billing Disposition and Condition Condition: STABLE Disposition: Home - Attestation Statements Document Initiated by Scribe: Yes Documenting Scribe: Collin Naranjo Provider For Whom Marni is Documenting (Include Credential): Jake Watson MD Scribe Attestation: Collin Muller , scribed for Jake Watson MD on 11/28/18 at 2046. Scribe Documentation Reviewed: Yes Provider Attestation: The documentation as recorded by the Collin katz accurately reflects the service I personally performed and the decisions made by Jake bhakta MD Status of Scribe Document: Viewed
[2018-11-27 11:43] LABS: ABS Basophils 0.1 10^3/ul (0-0.2); ABS Eosinophils 0.1 10^3/ul (0-0.6); ABS Lymphocytes 1.2 10^3/ul (1.0-4.8); ABS Monocytes 0.3 10^3/ul (0-0.8); ABS Neutrophils 9.7 10^3/ul (1.5-7.7); ABS Nucleated RBC 0 10^3/ul; Hematocrit 35 % (35-47); Hemoglobin 11.1 g/dl (12.0-16.0); Lymphocyte % 10.5 %; Mean Corpuscular HGB Conc 31 g/dl (31-36); Mean Corpuscular Hemoglobin 24 pg (27-31); Mean Corpuscular Volume 76 fL (80-97); Mean Platelet Volume 9.5 fL (7.4-10.4); Nucleated Red Blood Cells % 0; Platelet Count 193 10^3/ul (150-450); Red Blood Count 4.66 10^6/ul (4.00-5.40); Red Cell Distribution Width 15 % (10.5-15); White Blood Count 11.4 10^3/ul (3.5-10.8)
[2018-11-27 12:02] LABS: Troponin I 0.01 ng/mL (<0.04)
[2018-11-27 12:03] LABS: Albumin 3.8 g/dL (3.2-5.2); BUN/Creatinine Ratio 18.8 (8-20); C Reactive Protein 3.23 mg/L (<8.01); Calcium 9.7 mg/dL (8.6-10.3); EGFR African American 57.7 (>60); EGFR Non-African American 47.7 (>60); Globulin 3.7 g/dL (2-4); Magnesium 1.8 mg/dL (1.9-2.7); Potassium 4.3 mmol/L (3.5-5.0); Total Bilirubin 0.5 mg/dL (0.2-1.0); Total Protein 7.5 g/dL (6.4-8.9)
[2018-11-27] MEDS ORDERED: Insulin REGULAR(*) 1 UNITS UNIT IV PUSH ONE (12:05)
[2018-11-27 12:36] LABS: TSH (Thyroid Stimulating Horm) 0.58 mcIU/mL (0.34-5.60)
[2018-11-27 12:58] LABS: Urine Appearance Clear; Urine Bilirubin Negative (Negative); Urine Blood Negative (Negative); Urine Color Yellow; Urine Glucose 3+(>=500 mg/dL) (Negative); Urine Ketones Negative (Negative); Urine Nitrite Negative (Negative); Urine Protein Negative (Negative); Urine Specific Gravity 1.006 (1.010-1.030); Urine Urobilinogen Negative (Negative)
[2018-11-27 15:26] VITALS: BP 163/67
== END 2018-11-27 15:25 | disposition home or self-care (01) ==
LOC: ED 10:54
DX: R42 Dizziness and giddiness (principal); E11.9 Type 2 diabetes mellitus without complications; E03.9 Hypothyroidism, unspecified; Z79.84 Long term (current) use of oral hypoglycemic drugs
CPT/HCPCS: 36415; 70450; 71045; 80053; 81003; 82550; 83605; 83735; 83880; 84443; 84484; 85025; 86140; 93005; 96361; 96374; 99283; A9270-GY

== ENCOUNTER 2018-12-18 10:01 | Emergency (ER) | payer MEDICARE, OTHER | END 2018-12-18 10:30 | disposition left against medical advice (07) | LOC: UCEAST 10:01 | DX: Z53.21 Procedure and treatment not carried out due to patient leaving prior to being seen by health care provider (principal) ==

== ENCOUNTER 2019-01-10 10:41 | Emergency (ER) | payer MEDICARE, OTHER ==
--- NOTE | 2019-01-10 11:18 | ED ---
Dizziness - HPI Summary HPI Summary: This patient is a 73 year old female presenting to [facility] accompanied by daughter with a chief complaint of dizziness since a few hours ago. Patient is diabetic and states that she ate too many desserts. Patient states that her blood sugar is over 300. Patient states that she hasnt had a proper breakfast yet. The pain is rated 0/10 in severity. Symptoms aggravated by nothing. Symptoms alleviated by nothing. Patient additionally reports fatigue, nausea. Patient denies sore throat - History Of Current Complaint Chief Complaint: EDDiabeticProb Stated Complaint: TYPE 2 DIABETIC, NAUSEAU Time Seen by Provider: 01/10/19 11:02 Hx Obtained From: Patient Onset/Duration: Still Present Timing: Constant Severity Currently: Mild Character: Weak, Dizzy Aggravating Factor(s): Nothing Alleviating Factor(s): Nothing Associated Signs And Symptoms: Positive: Nausea, Other: - fatigue - Allergies/Home Medications Allergies/Adverse Reactions: Allergies Allergy/AdvReac Type Severity Reaction Status Date / Time No Known Allergies Allergy Verified 01/10/19 10:49 PMH/Surg Hx/FS Hx/Imm Hx Previously Healthy: No Endocrine/Hematology History: Reports: Hx Diabetes, Hx Thyroid Disease - hypo History: Denies: Hx Benign Prostatic Hyperplasia, Hx Kidney Stones Sensory History: Denies: Hx Deafness - Surgical History Surgery Procedure, Year, and Place: Lithotripsy right kidney. bilateral wrist surgery Infectious Disease History: No Infectious Disease History: Denies: Hx Clostridium Difficile, Hx Hepatitis, Hx Human Immunodeficiency Virus (HIV), Hx of Known/Suspected MRSA, Hx Shingles, Hx Tuberculosis, Hx Known/ Suspected VRE, Hx Known/Suspected VRSA, History Other Infectious Disease, Traveled Outside the [place] in Last 30 Days - Family History Known Family History: Positive: Diabetes Negative: Cardiac Disease, Hypertension - Social History Alcohol Use: None Hx Substance Use: No Substance Use Type: Reports: None Hx Tobacco Use: No Smoking Status (MU): Never Smoked Tobacco Have You Smoked in the Last Year: No Review of Systems Positive: Fatigue. Negative: Fever Negative: Sore Throat Positive: Nausea Neurological: Other - Dizziness All Other Systems Reviewed And Are Negative: Yes Physical Exam - Summary Physical Exam Summary: Appearance: The patient is well-nourished in no acute distress and in no acute pain. Skin: The skin is warm and dry and skin color reflects adequate perfusion. HEENT: The head is normocephalic and atraumatic. The pupils are equal and reactive. The conjunctivae are clear and without drainage. No nystagmus. Nares are patent and without drainage. Mouth reveals moist mucous membranes and the throat is without erythema and exudate. The external ears are intact. The ear canals are patent and without drainage. The tympanic membranes are intact. Neck: The neck is supple with full range of motion and non-tender. There are no carotid bruits. There is no neck vein distension. Respiratory: Chest is non-tender. Lungs are clear to auscultation and breath sounds are symmetrical and equal. Cardiovascular: Heart is regular rate and rhythm. There is no murmur or rub auscultated. There is no peripheral edema and pulses are symmetrical and equal. Abdomen: The abdomen is soft and non-tender. There are normal bowel sounds heard in all four quadrants and there is no organomegaly palpated. Musculoskeletal: There is no back tenderness noted. Extremities are non-tender with full range of motion. There is good capillary refill. There is no peripheral edema or calf tenderness elicited. Neurological: Patient is alert and oriented to person, place and time. The patient has symmetrical motor strength in all four extremities. Cranial nerves are grossly intact. Deep tendon reflexes are symmetrical and equal in all four extremities. Psychiatric: The patient has an appropriate affect and does not exhibit any anxiety or depression. Triage Information Reviewed: Yes Vital Signs On Initial Exam: Initial Vitals Temp Pulse Resp BP Pulse Ox 97.0 F 58 14 96/46 98 01/10/19 10:43 01/10/19 10:43 01/10/19 10:43 01/10/19 10:43 01/10/19 10:43 Vital Signs Reviewed: Yes Diagnostics - Vital Signs Vital Signs Temp Pulse Resp BP Pulse Ox 01/10/19 11:00 60 95 01/10/19 10:59 63 115/60 92 01/10/19 10:58 62 91 01/10/19 10:43 97.0 F 58 14 96/46 98 - Laboratory Result Diagrams: 01/10/19 12:08 01/10/19 12:08 Lab Statement: Any lab studies that have been ordered have been reviewed, and results considered in the medical decision making process. - EKG 1148 Cardiac Rate: NL - 73 BPM Summary of EKG Findings: An EKG, taken 1146, reveals NSR (73 BPM), normal ST, no ectopy, no STEMI. Dizzy Course/Dx - Course Course Of Treatment: Ms. Olmstead came into the ED concerned because she felt shaky and dizzy. She checked her blood sugar was high. She has a friend who is just passed and last night she was at the viewing and had a lot of sugary dessert and also this morning. She did have a little bit of breakfast also. She was nontoxic in appearance with stable vitals here. She was kept on a monitor and observed here in the emergency department. She had a very slight leukocytosis which I think is demargination from stress. She is anemic consistent with her previous values. Her BUN and creatinine are elevated from baseline indicating some dehydration. Her CRP is normal. Her blood sugar is elevated but she is not acidotic. She received some IV fluid here in the emergency department and it's noted that her lactic acid was elevated. She came in with a similar episode in November and responded to IV fluids and indeed felt improved here today. I think this is a combination of her diet and some dehydration and stress. She is stable for discharge to follow-up with her PCP this week. - Diagnoses Provider Diagnoses: Hyperglycemia, Dehydration Discharge - Sign-Out/Discharge Documenting (check all that apply): Patient Departure Patient Received Moderate/Deep Sedation with Procedure: No - Discharge Plan Condition: Stable Disposition: HOME Patient Education Materials: Diabetic Hyperglycemia (ED) Referrals: Louis Raymundo MD [Primary Care Provider] - 2 Days Additional Instructions: Return to the ED for any new or worsening symptoms. - Billing Disposition and Condition Condition: STABLE Disposition: Home - Attestation Statements Document Initiated by Marni: Yes Documenting Scribe: Maryann Sood Provider For Whom Marni is Documenting (Include Credential): Daniel Carpenter MD Scribe Attestation: I, steven Paytonibed for Daniel Carpenter MD on 01/11/19 at 1459. Scribe Documentation Reviewed: Yes Provider Attestation: The documentation as recorded by the Maryann katz accurately reflects the service I personally performed and the decisions made by me, Daniel Carpenter MD Status of Scribe Document: Viewed
[2019-01-10 12:23] LABS: ABS Basophils 0 10^3/ul (0-0.2); ABS Eosinophils 0.1 10^3/ul (0-0.6); ABS Lymphocytes 0.9 10^3/ul (1.0-4.8); ABS Monocytes 0.4 10^3/ul (0-0.8); ABS Nucleated RBC 0 10^3/ul; Eosinophil % 0.7 %; Hematocrit 32 % (33-41); Hemoglobin 10.1 g/dL (12.0-16.0); Lymphocyte % 6.8 %; Mean Corpuscular HGB Conc 32 g/dL (31-36); Mean Corpuscular Hemoglobin 24 pg (27-31); Mean Corpuscular Volume 77 fL (80-97); Mean Platelet Volume 9.2 fL (7.4-10.4); Nucleated Red Blood Cells % 0; Platelet Count 191 10^3/uL (150-450); Red Blood Count 4.12 10^6 /uL (3.70-4.87); Red Cell Distribution Width 15 % (10.5-15); White Blood Count 13.5 10^3/uL (3.5-10.8)
[2019-01-10 12:36] LABS: Albumin 3.5 g/dL (3.2-5.2); Albumin/Globulin Ratio 1.1 (1-3); BUN/Creatinine Ratio 23.2 (8-20); C Reactive Protein 4.74 mg/L (<8.01); Calcium 8.8 mg/dL (8.6-10.3); EGFR African American 43.8 (>60); EGFR Non-African American 36.2 (>60); Globulin 3.2 g/dL (2-4); Magnesium 1.6 mg/dL (1.9-2.7); Potassium 4.2 mmol/L (3.5-5.0); Total Bilirubin 0.4 mg/dL (0.2-1.0); Total Protein 6.7 g/dL (6.4-8.9); Troponin I 0.01 ng/mL (<0.04)
[2019-01-10] MEDS ORDERED: NS 0.9% 1000 ML** 2,000 ML IV ONE (12:43)
[2019-01-10 12:58] LABS: TSH (Thyroid Stimulating Horm) 1.14 mcIU/mL (0.34-5.60)
[2019-01-10 14:33] VITALS: BP 131/69
== END 2019-01-10 14:39 | disposition home or self-care (01) ==
LOC: ED 10:41
DX: E11.65 Type 2 diabetes mellitus with hyperglycemia (principal); E86.0 Dehydration; R42 Dizziness and giddiness; R53.83 Other fatigue; R11.0 Nausea
CPT/HCPCS: 36415; 80053; 83605; 83735; 84443; 84484; 85025; 86140; 93005; 96360; 96361; 99283

== ENCOUNTER 2024-10-29 19:47 | Observation (INO) ==
[2024-10-30 01:43] LABS: High Sens Troponin Baseline 15 pg/mL (<15)
[2024-10-30 02:08] LABS: ALT 39 U/L (7-52); Albumin 4.5 g/dL (3.5-5.7); Albumin/Globulin Ratio 0.9 (1-3); Alkaline Phosphatase 88 U/L (35-149); Anion Gap 9 mmol/L (2-16); Blood Urea Nitrogen 51 mg/dL (6-24); CO2 Carbon Dioxide 15 mmol/L (22-32); Calcium 8.1 mg/dL (8.6-10.3); Chloride 100 mmol/L (101-111); Creatinine, Serum 2.46 mg/dL (0.51-0.95); Globulin 4.9 g/dL (2-4); Glucose 421 mg/dL (70-100); Sodium 124 mmol/L (135-145); Total Bilirubin 0.7 mg/dL (0.2-1.0); Total Protein 9.4 g/dL (6.4-8.9); eGFR CKD-EPI 19.5 (>60)
[2024-10-30 02:23] LABS: ABS Basophils 0.1 10^3/uL (0.0-0.1); ABS Eosinophils 0.1 10^3/uL (0.0-0.5); ABS Lymphocytes 1.8 10^3/uL (1.0-4.8); ABS Monocytes 0.7 10^3/uL (0.0-0.9); ABS Neutrophils 10.8 10^3/uL (1.5-7.6); Eosinophil % 0.7 %; Hematocrit 32.6 % (35-45); Hemoglobin 10.3 g/dL (11.5-14.3); Hypochromasia 1+; Lymphocyte % 13.5 %; Mean Corpuscular Hemoglobin 23.6 pg (27-33); Mean Corpuscular Hgb Conc 31.8 g/dL (31-36); Mean Corpuscular Volume 74.3 fL (80-97); Mean Platelet Volume 8.5 fL (7.5-11.2); Microcytosis 2+; Platelet Count 269 10^3/uL (150-450); Red Blood Count 4.38 10^6/uL (3.63-4.92); Red Cell Distribution Width 14.7 % (12-17); White Blood Count 13.5 10^3/uL (3.8-11.8)
[2024-10-30 02:26] LABS: Potassium Redraw 5.8 mmol/L (3.5-5.0)
[2024-10-30 02:51] LABS: Venous Bicarbonate HCO3 20.8 mmol/L (24-28)
[2024-10-30] MEDS: Lactated Ringers 1000 ml BAG 1,000 ML IV ONE (03:11)
[2024-10-30] MEDS ORDERED: Dextrose 50% Syringe 50 ml 25 GM/50 ML SYRINGE IV PUSH PRN ×3 (05:13→06:30)
[2024-10-30] MEDS ORDERED: Sulfur Hexaflouride MICROSPHR 25 MG VIAL IV PRN (05:40)
[2024-10-30] MEDS: cloNIDine 0.2 MG PATCH 0.2 MG/24 HR 7 DAY PATCH TRANSDERM SCH ×2 (06:39→10:52)
[2024-10-30 08:20] LABS: ABS Basophils 0.1 10^3/uL (0.0-0.1); ABS Eosinophils 0.2 10^3/uL (0.0-0.5); ABS Lymphocytes 1.7 10^3/uL (1.0-4.8); ABS Monocytes 0.5 10^3/uL (0.0-0.9); ABS Neutrophils 6.6 10^3/uL (1.5-7.6); ABS Nucleated RBC 0.01 10^3/ul; Eosinophil % 2.3 %; Hemoglobin 9.2 g/dL (11.5-14.3); Lymphocyte % 18.9 %; Mean Corpuscular Hemoglobin 24.5 pg (27-33); Mean Corpuscular Volume 74.2 fL (80-97); Mean Platelet Volume 8.5 fL (7.5-11.2); Nucleated Red Blood Cells % 0.1 %/100WBC (0.0-0.8); Platelet Count 229 10^3/uL (150-450); Red Blood Count 3.77 10^6/uL (3.63-4.92); Red Cell Distribution Width 14.7 % (12-17)
[2024-10-30] MEDS: Insulin GLARGINE 100 un/ml 10 ml VIAL SUBCUT SCH (08:32)
[2024-10-30 08:35] LABS: Calcium 8.3 mg/dL (8.6-10.3); Creatinine, Serum 2.07 mg/dL (0.51-0.95); Magnesium 2.2 mg/dL (1.9-2.7); Potassium 5.2 mmol/L (3.5-5.0); eGFR CKD-EPI 23.9 (>60)
[2024-10-30] MEDS ORDERED: Insulin GLARGINE 100 un/ml 10 ml VIAL SUBCUT SCH (09:00)
[2024-10-30] MEDS ORDERED: Magnesium Hydroxide LIQ 30 ML UDC PO PRN (16:14)
[2024-10-30 16:31] LABS: Folate 14.39 ng/mL (5.90-24.80)
[2024-10-30] MEDS: Polyethylene Glycol 3350 17 GM PACKET PO SCH (17:24)
[2024-10-30] MEDS: Heparin 5000 UNITS/ML 1 mL VIAL SUBCUT SCH (20:50)
[2024-10-30] MEDS: Magnesium Hydroxide LIQ 30 ML UDC PO SCH (20:51)
[2024-10-30] MEDS: Senna TAB 8.6 mg TAB PO SCH (20:51)
[2024-10-31 06:53] LABS: ABS Basophils 0.1 10^3/uL (0.0-0.1); ABS Eosinophils 0.4 10^3/uL (0.0-0.5); ABS Lymphocytes 1.9 10^3/uL (1.0-4.8); ABS Monocytes 0.6 10^3/uL (0.0-0.9); ABS Neutrophils 6.2 10^3/uL (1.5-7.6); Eosinophil % 4.6 %; Hemoglobin 9.1 g/dL (11.5-14.3); Lymphocyte % 20.7 %; Mean Corpuscular Hemoglobin 24.3 pg (27-33); Mean Corpuscular Hgb Conc 32.6 g/dL (31-36); Mean Corpuscular Volume 74.5 fL (80-97); Mean Platelet Volume 8.7 fL (7.5-11.2); Platelet Count 225 10^3/uL (150-450); Red Blood Count 3.76 10^6/uL (3.63-4.92); Red Cell Distribution Width 14.7 % (12-17); White Blood Count 9.2 10^3/uL (3.8-11.8)
[2024-10-31 07:00] LABS: Calcium 8.1 mg/dL (8.6-10.3); Creatinine, Serum 2.12 mg/dL (0.51-0.95); Magnesium 2.4 mg/dL (1.9-2.7); Potassium 5.4 mmol/L (3.5-5.0); eGFR CKD-EPI 23.3 (>60)
[2024-10-31 13:12] VITALS: BP 154/94
[2024-10-31 13:18] LABS: Urine Appearance Clear; Urine Bilirubin Negative (Negative); Urine Blood Negative (Negative); Urine Color Light-Yellow; Urine Glucose Trace (Negative); Urine Ketones Negative (Negative); Urine Nitrite Negative (Negative); Urine Protein 2+ (>=100 mg/dL) (Negative); Urine Specific Gravity 1.013 (1.002-1.030); Urine Urobilinogen Negative (Negative); Urine pH 6.5 (5.0-8.0)
[2024-10-31 13:21] LABS: Urine Bacteria Absent /HPF (Absent); Urine Red Blood Cell 1+(3-5/hpf) /HPF (0-Trace); Urine Squamous Epithelial Cell Present /HPF (Absent); Urine White Blood Cell Trace(0-5/hpf) /HPF (0-Trace)
== END 2024-10-31 13:39 | disposition home or self-care (01) ==
LOC: EDHOLD 19:47 → ED 19:47 → SUATTDRO 10-30 04:40 → MERGE 10-30 04:40 → MED 10-30 05:26
PROVIDERS: ADMIT Internal Medicine; ATTEND Internal Medicine

== ENCOUNTER 2024-11-01 20:36 | Inpatient (IN) ==
[2024-11-01 21:33] LABS: ABS Eosinophils 0.5 10^3/uL (0.0-0.5); ABS Lymphocytes 1.1 10^3/uL (1.0-4.8); ABS Monocytes 0.6 10^3/uL (0.0-0.9); ABS Neutrophils 6.1 10^3/uL (1.5-7.6); Eosinophil % 5.5 %; Hematocrit 27.8 % (35-45); Hemoglobin 8.9 g/dL (11.5-14.3); Lymphocyte % 13.2 %; Mean Corpuscular Hemoglobin 24.3 pg (27-33); Mean Corpuscular Hgb Conc 32.1 g/dL (31-36); Mean Corpuscular Volume 75.7 fL (80-97); Platelet Count 238 10^3/uL (150-450); Red Blood Count 3.68 10^6/uL (3.63-4.92); Red Cell Distribution Width 14.8 % (12-17); White Blood Count 8.3 10^3/uL (3.8-11.8)
[2024-11-01 21:50] LABS: Venous Bicarbonate HCO3 19.9 mmol/L (24-28)
[2024-11-01 22:50] LABS: C Reactive Protein 5.71 mg/L (<8.01); Calcium 8.1 mg/dL (8.6-10.3); Creatinine, Serum 2.43 mg/dL (0.51-0.95); Potassium 5.4 mmol/L (3.5-5.0); eGFR CKD-EPI 19.7 (>60)
[2024-11-01 23:12] LABS: High Sensitivity Troponin 1 Hr 20 pg/mL (<15)
[2024-11-01] MEDS: Lactated Ringers 1000 ml BAG 1,000 ML IV ONE (23:16)
[2024-11-02 00:28] LABS: Urine Appearance Clear; Urine Bacteria Absent /HPF (Absent); Urine Bilirubin Negative (Negative); Urine Blood Negative (Negative); Urine Color Colorless; Urine Glucose 4+ (>=1000 mg/dL) (Negative); Urine Ketones Negative (Negative); Urine Nitrite Negative (Negative); Urine Protein 2+ (>=100 mg/dL) (Negative); Urine Red Blood Cell Trace(0-2/hpf) /HPF (0-Trace); Urine Squamous Epithelial Cell Present /HPF (Absent); Urine Urobilinogen Negative (Negative); Urine White Blood Cell Trace(0-5/hpf) /HPF (0-Trace)
[2024-11-02 01:01] LABS: Glucose Confirmatory 430 mg/dL (70-100)
[2024-11-02 01:26] LABS: Osmolality Serum 330 mOsm/kg (275-295)
[2024-11-02] MEDS ORDERED: cloNIDine 0.2 MG PATCH 0.2 MG/24 HR 7 DAY PATCH TRANSDERM SCH (02:00)
[2024-11-02] MEDS: Insulin GLARGINE 100 un/ml 10 ml VIAL SUBCUT SCH (02:43)
[2024-11-02] MEDS: cloNIDine 0.2 MG PATCH 0.2 MG/24 HR 7 DAY PATCH TRANSDERM SCH (04:14)
[2024-11-02] MEDS: Albuterol/Ipratropium NEB.SOL (2.5/0.5 MG) 3 ML NEB.SOLN INH PRN (04:42)
[2024-11-02 05:04] LABS: Calcium 7.9 mg/dL (8.6-10.3); Creatinine, Serum 2.21 mg/dL (0.51-0.95); Potassium 4.7 mmol/L (3.5-5.0); eGFR CKD-EPI 22.1 (>60)
[2024-11-02] MEDS: Enoxaparin 30 MG/0.3 ML SYR SUBCUT SCH (05:36)
[2024-11-02] MEDS: Furosemide 20 mg/2 ml IV VIAL IV SLOW PU ONE (12:32)
[2024-11-03 06:31] LABS: ABS Eosinophils 0.4 10^3/uL (0.0-0.5); ABS Lymphocytes 1.5 10^3/uL (1.0-4.8); ABS Monocytes 0.4 10^3/uL (0.0-0.9); ABS Neutrophils 5.7 10^3/uL (1.5-7.6); Eosinophil % 5.2 %; Hematocrit 26.8 % (35-45); Hemoglobin 8.9 g/dL (11.5-14.3); Lymphocyte % 18.5 %; Mean Corpuscular Hemoglobin 24.8 pg (27-33); Mean Corpuscular Hgb Conc 33.2 g/dL (31-36); Mean Corpuscular Volume 74.5 fL (80-97); Mean Platelet Volume 8.6 fL (7.5-11.2); Platelet Count 217 10^3/uL (150-450); Red Cell Distribution Width 14.7 % (12-17)
[2024-11-03 06:54] LABS: Creatinine, Serum 2.06 mg/dL (0.51-0.95); Potassium 4.8 mmol/L (3.5-5.0); eGFR CKD-EPI 24.1 (>60)
[2024-11-03] MEDS ORDERED: guaiFENesin 100 mg/5 ml LIQ unit dose cup PO PRN (08:35)
[2024-11-03] MEDS: Calcium Citrate 200 mg TAB PO SCH (12:03)
[2024-11-03] MEDS: Furosemide 20 mg/2 ml IV VIAL IV SLOW PU ONE (15:15)
[2024-11-03] MEDS ORDERED: Magnesium Hydroxide LIQ 30 ML UDC PO PRN (15:30)
[2024-11-03] MEDS ORDERED: Senna TAB 8.6 mg TAB PO PRN (15:30)
[2024-11-03] MEDS: Polyethylene Glycol 3350 17 GM PACKET PO PRN (16:49)
[2024-11-03] MEDS: Magnesium Hydroxide LIQ 30 ML UDC PO SCH (20:07)
[2024-11-04 06:34] LABS: Calcium 8.2 mg/dL (8.6-10.3); Creatinine, Serum 2.26 mg/dL (0.51-0.95); Potassium 4.8 mmol/L (3.5-5.0); eGFR CKD-EPI 21.5 (>60)
[2024-11-04 10:32] LABS: Magnesium 2.6 mg/dL (1.9-2.7)
[2024-11-04 11:44] LABS: Albumin 3.3 g/dL (3.5-5.7); Albumin/Globulin Ratio 0.9 (1-3); Globulin 3.6 g/dL (2-4); HDL Cholesterol 54.6 mg/dL; Total Bilirubin 0.4 mg/dL (0.2-1.0); Total Protein 6.9 g/dL (6.4-8.9)
[2024-11-05 06:31] LABS: ABS Eosinophils 0.3 10^3/uL (0.0-0.5); ABS Lymphocytes 1.3 10^3/uL (1.0-4.8); ABS Monocytes 0.5 10^3/uL (0.0-0.9); ABS Neutrophils 4.4 10^3/uL (1.5-7.6); Hematocrit 26.4 % (35-45); Hemoglobin 8.6 g/dL (11.5-14.3); Lymphocyte % 19.7 %; Mean Corpuscular Hemoglobin 24.2 pg (27-33); Mean Corpuscular Hgb Conc 32.6 g/dL (31-36); Mean Corpuscular Volume 74.3 fL (80-97); Mean Platelet Volume 8.8 fL (7.5-11.2); Platelet Count 229 10^3/uL (150-450); Red Blood Count 3.56 10^6/uL (3.63-4.92); White Blood Count 6.6 10^3/uL (3.8-11.8)
[2024-11-05 06:33] LABS: Calcium 7.9 mg/dL (8.6-10.3); Creatinine, Serum 2.08 mg/dL (0.51-0.95); Potassium 4.8 mmol/L (3.5-5.0); eGFR CKD-EPI 23.8 (>60)
[2024-11-05 08:10] LABS: Ferritin 82.5 ng/mL (11-307)
[2024-11-05 12:32] LABS: Urine Creatinine 53.64 mg/dL
[2024-11-05 12:39] LABS: UR Microalbumin (mg/L) 454.6 mg/L; Urine Microalbumin/Creatinine 847.5 mcg/mg (<31)
[2024-11-05] MEDS: Dextrose 50% Syringe 50 ml 25 GM/50 ML SYRINGE IV PUSH PRN (17:02)
[2024-11-05 17:24] VITALS: BP 135/54
== END 2024-11-05 18:35 | disposition home health service (06) | DRG 637 ==
LOC: ED 20:36 → EDHOLD 20:36 → OBSVTOIN 11-02 01:09 → SUATTDRO 11-02 01:09 → MED 11-02 14:36
PROVIDERS: ADMIT Student in an Organized Health Care Education/Training Program; ATTEND Internal Medicine